=== PATIENT | female | born 1965 | race Caucasian/White ===

== ENCOUNTER → 2016-08-06 | Outpatient (CLI) | payer BC ==
[~2016-08-06] MED LIST: ASPCH81 PO; CRG25 PO; DIGO0.2518 PO; FRS/40 PO; GLC500 PO; LISI-725 PO; NITR-5 PO; OMEG10007 PO; POTA-335 PO; [UNRECOGNIZED DRUG - CODE] PO
--- NOTE | 2016-08-06 14:56 | MAMMOGRAPHY REPORT ---
UNILATERAL RIGHT DIGITAL DIAGNOSTIC MAMMOGRAM: 08/06/2016 CLINICAL HISTORY: 51-year-old woman called back from screening mammography for grouped microcalcific ations and associated nodular asymmetry in the upper inner anterior right breast. TECHNIQUE: Spot magnification right CC and ML views were obtained. COMPARISON: Comparison is made to exams dated: 10/19/2013 mammogram, 04/15/2013 mammogram, 03/07/2012 mammogram, 01/17/2011 mammogram, and 11/09/2009 mammogram - [facility]. BREAST COMPOSITION: There are scattered areas of fibroglandular density in the right breast. FINDINGS: There is a grouping of round and punctate microcalcifications and associated nodular asym metry in the upper inner anterior right breast, measuring approximately 4 x 2 cm. Some of the large st calcifications clearly demonstrate layering on the spot magnification MLO view, suggesting benign milk of calcium. When comparing back to prior spot magnification views obtained 04/15/2013, the mi crocalcifications do not appear significantly changed in number or distribution. However, when comp aring to more remote mammograms, the microcalcifications were new since the 2009 exam and therefore remain indeterminate. Definitive characterization with tissue sampling is recommended. IMPRESSION: ACR BI-RADS CATEGORY 4B: INTERMEDIATE SUSPICION FOR MALIGNANCY Right breast stereotactic guided biopsy is recommended for grouped round and punctate microcalcifica tions measuring approximately 4 x 2 cm in the upper inner anterior right breast. These results and recommendations were discussed with the patient at the time of the exam. She tent atively scheduled the procedure prior to leaving our department. Approximately 10% of breast cancers are not detected with mammography. A negative mammographic repor t should not delay biopsy if a clinically suggestive mass is present. Lydia Hopkins M.D. ay/:08/06/2016 08:57:01 Fire Boss: Suha JIN(R)(M), [facility] letter sent: Abnormal 4/5 BI-RADS Code: ACR BI-RADS Category 4B: Intermediate Suspicion For Malignancy
== END | disposition home or self-care (01) ==
LOC: C.MAMM 08:17
PROVIDERS: ATTEND Family Medicine
DX: R92.0 Mammographic microcalcification found on diagnostic imaging of breast (principal); R92.8 Other abnormal and inconclusive findings on diagnostic imaging of breast

== ENCOUNTER → 2016-08-15 | Outpatient (CLI) | payer BC ==
--- NOTE | 2016-08-15 08:23 | Discharge Instructions ---
Discharge Instructions Procedure Procedure Date: Aug 15, 2016. Reason for visit: Rt Calcs. Discharge Discharge Date: Aug 15, 2016. Discharge Diagnosis: status post breast biopsy Instructions Activity Recommendations: Additional Limitations (see below) Return to School/Work: no limitations Recommended Home Diet: No Limitations Provider Instructions: ACTIVITY RECOMMENDATIONS: * No lifting, pushing, pulling or exercising the affected side for three days. RETURN TO SCHOOL/WORK: * You may return to work/school after the procedure, but do not perform any strenuous activities for 24 to 48 hours. MEDICATIONS: * Tylenol (two 325 mg) every four to six hours if needed for mild pain (if not allergic to Tylenol). DIET: * Resume previous diet. SPECIAL CARE INSTRUCTIONS: * Keep biopsy site dry for 24 hours. May shower after 24 hours, but do not soak (bathe) incision. * May remove Tegaderm (plastic patch) tomorrow AFTER showering. * Leave the steri-strips on for one week. Allow the steri-strips to fall off by themselves. If not off after one week, you may remove them. You may place a Bandaid crosswise over the strips, if desired. * Apply ice 10 minutes on and 10 minutes off as needed. * Wear a bra at bedtime to sleep more comfortably for 2-3 days. * Your referring physician should have the results after approximately 5 to 7 business days. * Call for unusual bleeding, fever, drainage, etc or if you have any questions call during normal business hours or after hours call Dr Jackson, [phone]. FOLLOW UP VISIT: Follow-up with Referring Physician as scheduled. Allergies Coded Allergies: No Known Allergies (Verified Allergy, Unknown, 03/12/03) Callum Friedman Recommendations: Call your doctor if: * Temperature above 101 degrees * Pain not relieved by pain medicine ordered * There is increased drainage or redness from any incision * You have any unanswered questions or concerns. Your Doctors Instructions noted above were prepared by provider Ailyn Jackson. Patient Signature Section: Patient Instructions Signature Page Azul Venkat Patient (or Guardian) Signature/Date: I have read and understand the instructions given to me by my caregivers. Caregiver/RN/Doctor Signature/Date: The above-named patient and/or guardian has received patient instructions on this date. + Original Patient Signature Page (only) stays with chart. Please make copy for patient.
--- NOTE | 2016-08-15 14:23 | MAMMOGRAPHY REPORT ---
UNILATERAL RIGHT DIGITAL DIAGNOSTIC MAMMOGRAM: 08/15/2016 CLINICAL HISTORY: Status post stereotactic biopsy of right upper inner quadrant calcifications. TECHNIQUE: Postprocedural right CC and ML views were obtained. COMPARISON: Comparison is made to exams dated: 07/25/2016 mammogram, 05/23/2015 mammogram, 05/10/20 14 mammogram, 04/15/2013 mammogram, 03/11/2012 mammogram, and 04/08/2013 mammogram - [facility]. BREAST COMPOSITION: There are scattered areas of fibroglandular density in the right breast. FINDINGS: A new biopsy marker clip is seen at the site of the biopsied calcifications in the right upper inner quadrant. Expected postbiopsy changes are seen at the biopsy site, with a possible smal l 1.5 cm hematoma noted. IMPRESSION: POST PROCEDURE IMAGING FOR MARKER PLACEMENT New biopsy marker clip status post stereotactic biopsy of right upper inner quadrant calcifications. Pathology results are pending. Approximately 10% of breast cancers are not detected with mammography. A negative mammographic repor t should not delay biopsy if a clinically suggestive mass is present. Ailyn Jackson M.D. ah/:08/15/2016 08:33:03 Timber [employer] Plant Operator: Gaby JIN(R)(M), [facility] BI-RADS Code: Post Procedure Imaging For Marker Placement
--- NOTE | 2016-08-15 14:23 | MAMMOGRAPHY REPORT ---
STEREOTACTIC GUIDED BIOPSY RIGHT BREAST: 08/15/2016 CLINICAL HISTORY: Indeterminate calcifications in the right upper inner quadrant. PATIENT CONSENT: The procedure, risks, benefits, and alternatives of stereotactic biopsy with clip p lacement were discussed with the patient, and verbal and written consent was obtained. A timeout wa s performed immediately prior to the procedure. PROCEDURE DESCRIPTION: With stereotactic guidance, aseptic technique, and lidocaine as a local anest hetic (1% lidocaine to anesthetize the skin and 1% lidocaine with epinephrine to anesthetize the tennille per tissues), the area of concern was sampled multiple times with a 9-gauge vacuum-assisted biopsy n eedle (Suros Eviva). The path of approach was medial. The specimen radiograph demonstrates calcifi cations to be present in the samples. A metallic marker clip was placed at the biopsy site. This w as confirmed on postprocedure mammograms. Direct pressure was applied at the biopsy site and hemost asis was readily achieved. The patient tolerated the procedure without complication. She was given wound care instructions. COMPARISON: Comparison is made to exams dated: 08/06/2016 mammogram, 07/25/2016 mammogram, 05/23/2015 mammogram, 05/10/2014 mammogram, 10/19/2013 mammogram, and 04/15/2013 mammogram - [facility]. IMPRESSION: STEREOTACTIC GUIDED BIOPSY Stereotactic biopsy of the indeterminate calcifications in the right upper inner quadrant, with clip placement. The patient will receive pathology results from her referring physician. Ailyn Jackson M.D. /:08/15/2016 08:26:43 In Store Marketer: Gaby MATIAS)(Stalin), [facility]
== END | disposition home or self-care (01) ==
LOC: C.MAMM 07:39
PROVIDERS: ATTEND Family Medicine
DX: N60.11 Diffuse cystic mastopathy of right breast (principal); R92.0 Mammographic microcalcification found on diagnostic imaging of breast

== ENCOUNTER → 2017-08-23 | Outpatient (CLI) | payer BC ==
--- NOTE | 2017-08-23 13:23 | MAMMOGRAPHY REPORT ---
BILATERAL DIGITAL SCREENING MAMMOGRAM TOMOSYNTHESIS WITH CAD: 08/23/2017 CLINICAL HISTORY: Routine screening. TECHNIQUE: Breast tomosynthesis in addition to standard 2D mammography was performed. Current study was also evaluated with a Computer Aided Detection (CAD) system. COMPARISON: Comparison is made to exams dated: 07/25/2016 mammogram, 05/23/2015 mammogram, 4 mammogram, 10/19/2013 mammogram, 04/08/2013 mammogram, and 03/07/2012 mammogram - [facility]. BREAST COMPOSITION: There are scattered areas of fibroglandular density in both breasts. FINDINGS: No suspicious masses, calcifications, or areas of architectural distortion are noted in ei ther breast. There has been no significant interval change compared to prior exams. A biopsy marker clip is noted within the right lower inner quadrant from benign stereotactic biopsy of calcifications . IMPRESSION: ACR BI-RADS CATEGORY 2: BENIGN There is no mammographic evidence of malignancy. A 1 year screening mammogram is recommended. The pa tient will receive written notification of the results. Approximately 10% of breast cancers are not detected with mammography. A negative mammographic report should not delay biopsy if a clinically suggestive mass is present. Ailyn Jackson M.D. /:08/23/2017 11:53:57 Retail Assistant: Chris MATIAS)(M), [facility] letter sent: Normal 1/2 BI-RADS Code: ACR BI-RADS Category 2: Benign
== END | disposition home or self-care (01) ==
LOC: C.MAMM 11:33
PROVIDERS: ATTEND Family Medicine
DX: Z12.31 Encounter for screening mammogram for malignant neoplasm of breast (principal)

== ENCOUNTER 2017-10-28 19:19 | Inpatient (IN) | payer BC ==
[~2017-10-28] VITALS: Ht 162.6 cm; Wt 93.1 kg
[2017-10-28] MEDS ORDERED: FAMOTIDINE 20MG/5ML IV PUSH IV STA (20:54)
[2017-10-28] MEDS ORDERED: ONDANSETRON INJ 2 MG/ML 2 ML VIAL IV STA (20:54)
[2017-10-28] MEDS ORDERED: KETOROLAC TROMETHAMINE 30 MG/ML VIAL IV STA (20:54)
[2017-10-28] MEDS ORDERED: SODIUM CHLORIDE 0.9% 1000ML 1,000 ML IV STA (20:54)
[2017-10-28 21:05] LABS: BASO % 0.5 %; BASO ABS # 0.05 K/uL (0-0.2); EOS % 1.3 %; EOS ABS # 0.12 K/uL (0-0.5); HEMOGLOBIN 14.5 g/dL (12.0-16.0); IG# 0.03 K/uL (0.00-0.02); LYMPH % 3.5 %; LYMPH ABS # 0.32 K/uL (1.2-3.4); MEAN CORPUSCULAR HEMOGLOBIN 28.7 pg (25-34); MEAN PLATELET VOLUME 8.4 fL (7.4-10.4); MONO % 13.8 %; MONO ABS # 1.26 K/uL (0.11-0.59); NEUT % 80.6 %; NEUT ABS # 7.38 K/uL (1.4-6.5); PLATELET COUNT 418 K/uL (130-400); WHITE BLOOD COUNT 9.16 K/uL (4.8-10.8)
[2017-10-28 21:29] LABS: ALT/SGPT 23 U/L (12-78); BLOOD UREA NITROGEN 11 mg/dl (7-18); CALCIUM 8.7 mg/dl (8.5-10.1); CARBON DIOXIDE 25 mmol/L (21-32); CREATININE 1.21 mg/dl (0.60-1.20); GLUCOSE 129 mg/dl (70-99); LIPASE 118 U/L (73-393); POTASSIUM 3.2 mmol/L (3.5-5.1); SODIUM 134 mmol/L (136-145)
[2017-10-28 21:34] LABS: ALKALINE PHOSPHATASE 90 U/L (45-117); AST/SGOT 14 U/L (15-37); TOTAL PROTEIN 7.4 gm/dl (6.4-8.2)
--- NOTE | 2017-10-28 21:58 | DIAGNOSTIC IMAGING REPORT ---
CHEST ONE VIEW PORTABLE CLINICAL HISTORY: ABDOMINAL PAIN/GI COMPARISON STUDY: Abdominal series and chest radiograph December 20, 2008. FINDINGS: Lung volumes are mildly diminished. No pneumothorax or pleural effusion is noted. There is no consolidation or evidence of pulmonary edema. Cardiac size is unremarkable. Mediastinal contours are within normal limits. IMPRESSION: No acute cardiopulmonary findings. Electronically signed by: Santi Martin M.D. 10/28/2017 9:57 PM Dictated Date/Time: 10/28/2017 9:56 PM
--- NOTE | 2017-10-28 22:25 | DIAGNOSTIC IMAGING REPORT ---
CT OF THE ABDOMEN AND PELVIS WITH CONTRAST CLINICAL HISTORY: Abdominal pain. COMPARISON STUDY: Abdominal series December 20, 2008. TECHNIQUE: Following IV administration of 94 mL of Optiray-320, axial images of the abdomen and pelvis were obtained from the lung bases to the proximal femurs. Images were reviewed in the axial, sagittal, and coronal planes. IV contrast was administered without complication. A dose lowering technique was utilized adhering to the principles of ALARA. CT DOSE: 1055.86 mGy.cm FINDINGS: A trace right pleural effusion is noted. There is no pneumatosis, free air or portal venous gas. Note is made of a 2 cm hypodense segment 7 hepatic lesion is well as a subtle 2.3 cm several hypodense segment 7 hepatic lesion shown image 18 of 97. The spleen, adrenal glands and pancreas are unremarkable. A few suspected renal cysts are noted. Several subcentimeter renal lesions are too small to characterize. There is a 2 mm right renal calculus. No ureteral calculi are present. There is no hydronephrosis. The appendix is normal. Small large bowel are fluid-filled. There is multifocal long segment ileal wall thickening with associated hyperemia and mesenteric infiltration. There is trace abdominal and pelvic ascites. A transition point is noted within the small bowel shown on axial image 330 of 481. No free air or abscess is present. No abscess or fistula is identified. There is suspected sacroiliitis. Note is made of a 3.5 cm water attenuation right adnexal lesion. IMPRESSION: 1. Multifocal long segment wall thickening and associated hyperemia of the ileum with mild small bowel dilatation suggestive of a partial small bowel obstruction secondary to ileitis which may be inflammatory or infectious. The appearance raises the possibility of Crohn's disease however an infectious process could appear similar. No free air or abscess. Mild mesenteric infiltration and trace ascites. Normal appendix. 2. A few hypodense right hepatic lobe lesions which are indeterminate. A follow-up nonemergent MRI of the liver once acute symptoms resolve is recommended. 3. Trace right pleural effusion. 4. 3.5 cm right adnexal lesion which likely reflects an ovarian cyst. A follow-up nonemergent pelvic ultrasound is recommended. 5. Suspected sacroiliitis. Electronically signed by: Santi Martin M.D. 10/28/2017 10:24 PM Dictated Date/Time: 10/28/2017 10:11 PM
[2017-10-28] MEDS ORDERED: MAGN400T6 PO (23:32)
[2017-10-28] MEDS ORDERED: LISI-729 PO (23:33)
[2017-10-29] MEDS ORDERED: POTASSIUM CHLORIDE 10 MEQ TABCR PO STA (00:14)
[2017-10-29] MEDS ORDERED: INSULIN ASPART 100 UNITS/ML 3 ML PEN SC ONE (00:14)
[2017-10-29] MEDS ORDERED: GLUCOSE 40% GEL 15 GM TUBE PO PRN (00:15)
[2017-10-29] MEDS ORDERED: GLUCOSE 10 TABS/TUBE PO PRN (00:15)
[2017-10-29] MEDS ORDERED: TRAMADOL HCL 50 MG TAB PO PRN (00:15)
[2017-10-29] MEDS ORDERED: GLUCAGON FOR INJ 1 MG VIAL SQ PRN (00:15)
[2017-10-29] MEDS ORDERED: DEXTROSE 50% 50 ML SYR IV PRN (00:15)
[2017-10-29] MEDS ORDERED: LORAZEPAM 2 MG/ML 1 ML VIAL IV PRN (00:15)
[2017-10-29] MEDS ORDERED: HYDROmorphone INJ 0.5 MG/0.5 ML SYR IV PRN (00:15)
[2017-10-29] MEDS ORDERED: ACETAMINOPHEN 325 MG TAB PO PRN (00:15)
[2017-10-29] MEDS ORDERED: CARVEDILOL 25 MG TAB PO STA (00:54)
[2017-10-29] MEDS ORDERED: CARVEDILOL 3.125 MG TAB PO STA (01:00)
[2017-10-29] MEDS ORDERED: MAGNESIUM SULFATE 1GM / D5W 1 GM in PREMIXED IN D5W 100 ML IV STA (01:18)
[2017-10-29 01:25] VITALS: BP 101/64; PULSE 67; TEMP 36.4; O2SAT 96; BMI 35.2
[2017-10-29] MEDS: NSS + 20MEQ KCL 1000ML 1,000 ML IV SCH ×2 (01:37→14:23)
[2017-10-29 02:01] VITALS: BP 99/59; PULSE 69
[2017-10-29 05:38] LABS: BASO % 0.6 %; BASO ABS # 0.03 K/uL (0-0.2); EOS ABS # 0.15 K/uL (0-0.5); HEMATOCRIT 36.5 % (37-47); HEMOGLOBIN 12.1 g/dL (12.0-16.0); IG# 0.03 K/uL (0.00-0.02); LYMPH % 7.7 %; LYMPH ABS # 0.38 K/uL (1.2-3.4); MEAN CELL VOLUME 86.5 fL (80-100); MEAN CORPUSCULAR HEMOGLOBIN 28.7 pg (25-34); MEAN CORPUSCULAR HGB CONC 33.2 g/dl (32-36); MEAN PLATELET VOLUME 8.1 fL (7.4-10.4); MONO % 17.3 %; MONO ABS # 0.85 K/uL (0.11-0.59); NEUT % 70.8 %; NEUT ABS # 3.48 K/uL (1.4-6.5); PLATELET COUNT 302 K/uL (130-400); RED CELL DISTRIBUTION WIDTH CV 14.2 % (11.5-14.5); RED CELL DISTRIBUTION WIDTH SD 44.5 fL (36.4-46.3); WHITE BLOOD COUNT 4.92 K/uL (4.8-10.8)
[2017-10-29] MEDS ORDERED: NURSING VERBAL MED ORDER ONE (05:45)
--- NOTE | 2017-10-29 05:55 | HISTORY & PHYSICAL EXAMINATION ---
DATE OF ADMISSION: 10/28/2017 PRIMARY CARE PHYSICIAN: Dr. Ochoa. CHIEF COMPLAINT: Abdominal pain. HISTORY OF PRESENT ILLNESS: History obtained from patient and records. Medical history significant for hypertension, chronic diastolic heart failure 2 to hypertensive cardiomyopathy (EF 55-59% 2013), , hyperlipidemia. DM2, diet controlled Two days history of achy epigastric pain, nausea, bilious emesis, loose stools (usual for patient), nonbloody. No fever, no chills, no chest pain, no shortness of breath. Intentional weight loss as per patient. Brought to the Emergency Room. MEDICAL HISTORY: As above. No previous colonoscopies. SURGERIES: She has had cholecystectomy. HOME MEDICATIONS: Include aspirin, Coreg, lisinopril, mag oxide, potassium chloride ALLERGIES: No known drug allergies. FAMILY HISTORY: Diabetes. Father has "bowel issues" - necessitating daily Cipro. PERSONAL SOCIAL HISTORY: Nonsmoker, no chronic intake of alcoholic beverages. Runs a daycare business. REVIEW OF SYSTEMS: As per HPI. All 10 systems reviewed, all other ROS negative. PHYSICAL EXAMINATION: VITAL SIGNS: Blood pressure was noted to be 100/70, pulse rate 95, RR 20 T 37 O2 sats 96 on room air. GENERAL: Noted to be anxious, obese, no respiratory distress. SKIN: Normal color, warm. HEENT: [place] palpebral conjunctivae. No ptosis. Dry mucosa. NECK: Short, supple. Nontender CHEST: Decreased breath sounds. No tenderness. HEART: Regular rate and rhythm, no murmur. ABDOMEN: Epigastric tenderness, some distention. EXTREMITIES: No edema. No gross deformities. No tenderness. NEUROLOGIC: Coherent. No gross focality. LABORATORY DATA: Hemoglobin was noted to be 14.5, hematocrit 44, white blood cell count 11.16, platelets 418. Sodium 134, potassium 3.4, chloride 104, CO2 25, BUN 11, creatinine 1.31, glucose 129 Hemoglobin A1c from July [address] abdomen and pelvis showed multifocal long segment wall thickening and hyperemia of the ileum with mild small bowel dilatation suggestive of partial small-bowel obstruction secondary to ileitis, inflammatory or infectious possible Crohn's disease. trace ascites. Normal appendix. Hypodense right hepatic cyst, recommen nonemergent MRI. UA, WBC calcium oxalate, ketones, epithelial cells. ASSESSMENT: 1. Ileitis possible inflammatory bowel disease Patient is not toxic. 2. Hyponatremia. Hypokalemia. Acute renal failure. clinical dehydration secondary to GI illness . 3. Hyperlipidemia on statin rx. 4. Hypertension. Patient's blood pressure on the lower side. 5. DM2, diet controlled, well controlled as of recent outpatient hemoglobin A1c. 6. History of hypertensive cardiomyopathy, ejection fraction 65%. Patient on the dry side. 7. Asymptomatic pyuria PLAN: GMF Stool C. difficile analgesia, bowel rest for now. IV fluids, replace potassium. GI consult, possible IBD. Monitor creatinine response to IV fluids. Hold home ACEI until creatinine at baseline. Decrease maintenance beta raegan dose for now given borderline blood pressure. ISS BG goal 140-180. DVT prophylaxis, Heparin subQ. Full code. Case d/w Dr. Liu (GI specialist swimming pool serviceperson). He recommends adding stool culture to stool C. diff for now. Further management pending GI evaluation. MTDD
[2017-10-29] MEDS ORDERED: HEPARIN SOD 5000 UNIT/0.5 ML CARP SQ SCH (06:00)
[2017-10-29] MEDS: INSULIN ASPART 100 UNITS/ML 3 ML PEN SC SCH ×4 (06:00→21:00)
[2017-10-29 06:14] LABS: CALCIUM 8.2 mg/dl (8.5-10.1); CREATININE 0.96 mg/dl (0.60-1.20); POTASSIUM 3.6 mmol/L (3.5-5.1)
[2017-10-29] MEDS ORDERED: INSULIN ASPART 100 UNITS/ML 3 ML PEN SC SCH (06:30)
[2017-10-29 07:53] VITALS: BP 117/72; PULSE 71; TEMP 36.7; O2SAT 97
[2017-10-29] MEDS ORDERED: ASPIRIN 81 MG CHEW PO SCH (08:00)
[2017-10-29] MEDS ORDERED: ENOXAPARIN 40 MG/0.4 ML SYR SQ ONE (08:30)
--- NOTE | 2017-10-29 08:45 | Gastrointestinal Consultation ---
Gastrointestinal Consultation Date of Consultation: Oct 29, 2017 Attending Physician: Dr. Mendieta Consulting Physician: Dr. Liu Reason for Consultation: Ileitis on CT History of Present Illness Patient is a 52 year old female patient of Dr. Ochoa with a hx of hypertensive cardiomyopathy (was greater than 300 lbs), DM-2 who presented to the ED yesterday for epigastric pain and vomiting. Her pain began on Saturday, consisting of diffuse upper abdomen burning, bloating pain with nausea. At that time, she vomited and had improvement in her pain. However, every day since then, she tried to eat a small meal around noon, then had increasing pain and vomited liquid/mucous stomach contents around 4 or 5 each day. She has not had hematemesis or a change in bowel habits. She continues with 1-2 loose brown BMs/day which is her baseline. Her most recent BM was this morning. She denies any recent travel or eating any potentially contaminated foods. No sick contacts. She has not yet undergone a screening colonoscopy and has never had any other endoscopy. She does not recall any previous episodes of similar pain and does not have a family hx of autoimmune disease. On arrival, CT abd/pelvis with IV, no oral contrast was suggestive of a long segment of wall thickening in the ileum and mild small bowel dilation. There was also mention of possible sacroiliitis, small non specific liver lesions and a 3.5 cm right ovarian cyst. On labs, there was no leukocytosis; there was hypokalemia (3.2) and hyponatremia (132), and Cr was mildly elevated on arrival at 1.2 (today back to baseline of 0.9). This morning she is free of pain but has been NPO except ice chips. Past Medical/Surgical History Past Medical History: 1. Hyperlipidemia 2. HTN 3. Cardiomyopathy 4. DM-2, diet controlled. Past Surgical History: 1. 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) Allergies Coded Allergies: No Known Allergies (Verified , 10/28/17) Current Medications Home Meds and Scripts Medications Dose Route/Sig Max Daily Dose Days Date Category Zestril (Lisinopril) 5 Mg Tab 5 Mg PO DAILY 10/28/17 Reported Mag-Ox (Magnesium Oxide) Unknown Strength Tab Unknown Dose PO DAILY 10/28/17 Reported Micro-K Ext Rel (Potassium Chloride) 20 Meq Cap 20 Meq PO QAM 12/20/08 Reported Coreg * (Carvedilol) 25 Mg Tab 37.5 Mg PO BID 12/20/08 Reported Aspirin Tab-Chewable * (Aspirin) 81 Mg Chew 81 Mg PO DAILY 12/20/08 Reported Review of Systems Constitutional: No fever, No chills, No sweats, No weight loss, No weakness Eyes: No eye pain, No redness ENT: No sore throat, No trouble swallowing, No pain on swallowing Respiratory: No cough, No wheezing, No shortness of breath, No dyspnea on exertion Cardiac: No chest pain, No edema, No palpitations Abdomen: + see HPI, + pain, + nausea, + vomiting, No diarrhea, No constipation , No GI bleeding, No dysphagia, No odynophagia Female : No dysuria Neuro: No memory loss, No weakness, No numbness/tingling, No vertigo, No balance problems Psych: No depression symptoms, No anxiety, No insomnia Heme: No abnormal bleeding/bruising, No night sweats Endo: No excessive thirst, No excessive urination Skin: No rash, No itch, No new/changing skin lesions, No jaundice Physical Exam Date Time Temp Pulse Resp B/P (MAP) Pulse Ox O2 Delivery O2 Flow Rate FiO2 10/29/17 07:53 36.7 71 16 117/72 (87) 97 Room Air 10/29/17 02:01 69 99/59 (72) 10/29/17 01:25 36.4 67 18 101/64 96 Room Air 10/29/17 00:44 36.6 76 20 105/73 97 10/28/17 22:50 76 20 105/73 97 Room Air 10/28/17 21:10 67 20 120/66 95 10/28/17 19:32 36.6 105 18 115/80 97 Room Air General Appearance: no apparent distress Eyes: normal inspection, EOMI Neck: supple, no adenopathy, thyroid normal Respiratory/Chest: chest non-tender, lungs clear, normal breath sounds, no accessory muscle use Cardiovascular: regular rate, rhythm, no JVD, no murmur Abdomen: normal bowel sounds, non tender, soft, no organomegaly Extremities: normal inspection, no pedal edema, normal capillary refill Neurologic/Psych: alert, normal mood/affect, oriented x 3 Skin: normal color, no jaundice, warm/dry, no rash Laboratory Results Last 24 Hours Test 10/28/17 20:54 10/28/17 20:56 10/29/17 01:39 10/29/17 05:30 Urine Color DK YELLOW Urine Appearance CLOUDY Urine pH 6.0 Urine Specific [place] 1.031 Urine Protein 1+ Urine Glucose (UA) NEG Urine Ketones TRACE Urine Occult Blood NEG Urine Nitrite NEG Urine Bilirubin NEG Urine Urobilinogen NEG Urine Leukocyte Esterase SMALL Urine WBC (Auto) >30 /hpf Urine RBC (Auto) 0-4 /hpf Urine Hyaline Casts (Auto) >30 /lpf Urine Epithelial Cells (Auto) >30 /lpf Urine Bacteria (Auto) 1+ Urine Crystals CALCIUM OXALATE Urine Pathogenic Casts 1-5 WBC CASTS /lpf White Blood Count 9.16 K/uL 4.92 K/uL Red Blood Count 5.06 M/uL 4.22 M/uL Hemoglobin 14.5 g/dL 12.1 g/dL Hematocrit 44.0 % 36.5 % Mean Corpuscular Volume 87.0 fL 86.5 fL Mean Corpuscular Hemoglobin 28.7 pg 28.7 pg Mean Corpuscular Hemoglobin Concent 33.0 g/dl 33.2 g/dl Platelet Count 418 K/uL 302 K/uL Mean Platelet Volume 8.4 fL 8.1 fL Neutrophils (%) (Auto) 80.6 % 70.8 % Lymphocytes (%) (Auto) 3.5 % 7.7 % Monocytes (%) (Auto) 13.8 % 17.3 % Eosinophils (%) (Auto) 1.3 % 3.0 % Basophils (%) (Auto) 0.5 % 0.6 % Neutrophils # (Auto) 7.38 K/uL 3.48 K/uL Lymphocytes # (Auto) 0.32 K/uL 0.38 K/uL Monocytes # (Auto) 1.26 K/uL 0.85 K/uL Eosinophils # (Auto) 0.12 K/uL 0.15 K/uL Basophils # (Auto) 0.05 K/uL 0.03 K/uL RDW Standard Deviation 44.0 fL 44.5 fL RDW Coefficient of Variation 14.0 % 14.2 % Immature Granulocyte % (Auto) 0.3 % 0.6 % Immature Granulocyte # (Auto) 0.03 K/uL 0.03 K/uL Sodium Level 134 mmol/L 138 mmol/L Potassium Level 3.2 mmol/L 3.6 mmol/L Chloride Level 101 mmol/L 108 mmol/L Carbon Dioxide Level 25 mmol/L 20 mmol/L Anion Gap 8.0 mmol/L 10.0 mmol/L Blood Urea Nitrogen 11 mg/dl 11 mg/dl Creatinine 1.21 mg/dl 0.96 mg/dl Est Creatinine Clear Calc Drug Dose 60.1 ml/min 76.7 ml/min Estimated GFR () 60.0 79.4 Estimated GFR (Non- 51.8 68.5 BUN/Creatinine Ratio 9.3 11.7 Random Glucose 129 mg/dl 99 mg/dl Calcium Level 8.7 mg/dl 8.2 mg/dl Magnesium Level 1.8 mg/dl Total Bilirubin 0.7 mg/dl Aspartate Amino Transf (AST/SGOT) 14 U/L Alanine Aminotransferase (ALT/SGPT) 23 U/L Alkaline Phosphatase 90 U/L Troponin I < 0.015 ng/ml Total Protein 7.4 gm/dl Albumin 3.0 gm/dl Globulin 4.4 gm/dl Albumin/Globulin Ratio 0.7 Lipase 118 U/L Bedside Glucose 97 mg/dl Prothrombin Time 10.0 SECONDS Prothromb Time International Ratio 1.0 Lactic Acid Level 0.7 mmol/L Test 10/29/17 06:08 Bedside Glucose 93 mg/dl Impression Patient is a 52 year old female with abdominal pain and CT suggestive of ileitis. Though this could represent an infectious etiology, that is unlikely because she has not had fevers/chills or diarrhea. The diagnosis of exclusion is Crohn's Disease. Plan 1. Clear liquids po today. 2. Sed rate, CRP. 3. Stool culture. 4. Plan for colonoscopy tomorrow. I have seen , examined and agree with the plan as outlined by SILVIA Rodgers as above. -exam reveals soft abd -Long segment of inflammation of the terminal illeum + sacroiliitis are concerning for Crohn's, however, a bit unusual to have such an acute onset of symptoms just since Saturday. Unlikely, but infectious etiology is still in differential. -Not obstructed clinically, therefore, will proceed with colonoscopy.
[2017-10-29] MEDS: CARVEDILOL 3.125 MG TAB PO SCH ×2 (08:51→21:15)
[2017-10-29] MEDS ORDERED: NURSING DECISION MEDICATION ORDER SCH (13:00)
[2017-10-29 13:27] VITALS: Ht 162.6 cm; Wt 93.1 kg
[2017-10-29] MEDS ORDERED: BISACODYL 5 MG TABEC PO ONE (14:00)
[2017-10-29] MEDS: POLYETHYLENE (MIRALAX) 17 GM PACK PO SCH (14:22)
--- NOTE | 2017-10-29 15:21 | EMERGENCY ROOM VISIT NOTE ---
History Report prepared by Martell: Carlo Tavares Under the Supervision of: Dr. Jean Smith M.D. First contact with patient: 20:47 Chief Complaint: ABDOMINAL PAIN Stated Complaint: STOMACH PAIN Nursing Triage Summary: burning epigastric pain History of Present Illness The patient is a 52 year old female who presents to the Emergency Room with complaints of intermittent abdominal pain beginning a few days ago. The patient states that she develops pain a few hours after eating. She notes that her pain feels like she is bloated and sore. She reports that her pain worsens when she feels bloated. The patient states that vomiting makes her pain better. She notes that she has not experienced similar symptoms in the past. She also complains diarrhea. She reports that after she vomits she has a burning sensation in her throat. She denies any fever, urinary symptoms, SOB, cough, and known sick contacts. She notes that she has a previous history of a cholecystectomy, hypertension, and CHF, but does not have a history of reflux. She rates her pain as an 8/10 when it is at its worst. Source of History: patient Onset: a few days ago Position: abdomen Symptom Intensity: 8/10 Timing: intermittent Modifying Factors (Worsening): other (bloating) Modifying Factors (Relieving): other (vomiting) Associated Symptoms: + vomiting, + diarrhea (does not contain blood), No fevers, No cough, No SOB, No urinary symptoms Note: The patient states that she feels bloated and burning in her throat. Review of Systems See HPI for pertinent positives & negatives. A total of 10 systems reviewed and were otherwise negative. Past Medical & Surgical Medical Problems: (1) CHF (congestive heart failure) (2) Hypertension (3) Ileitis Surgical Problems: (1) History of cholecystectomy Family History No pertinent family history stated. Social History Smoking Status: Never Smoker Marital Status: Housing Status: lives with family Current/Historical Medications Scheduled Aspirin (Aspirin Tab-Chewable *), 81 MG PO DAILY Carvedilol (Coreg *), 37.5 MG PO BID Lisinopril (Zestril), 5 MG PO DAILY Magnesium Oxide (Mag-Ox), Unknown Dose PO DAILY Potassium Chloride (Micro-K Ext Rel), 20 MEQ PO QAM Allergies Coded Allergies: No Known Allergies (Verified , 10/28/17) Physical Exam Vital Signs Date Time Temp Pulse Resp B/P (MAP) Pulse Ox O2 Delivery O2 Flow Rate FiO2 10/28/17 22:50 76 20 105/73 97 Room Air 10/28/17 21:10 67 20 120/66 95 10/28/17 19:32 36.6 105 18 115/80 97 Room Air Physical Exam GENERAL: Patient is in no acute distress. HEENT: No acute trauma, normocephalic atraumatic, mucous membranes moist, no nasal congestion, no scleral icterus. NECK: No stridor, no adenopathy, no meningismus, trachea is midline. LUNGS: Clear to auscultation bilaterally, no wheeze, no rhonchi, breath sounds equal. HEART: Without murmurs gallops or rubs, regular rate and rhythm. ABDOMEN: Abdominal distention present, hyperactive bowel sounds noted, tender in epigastrium, no peritonitis, abdomen soft. EXTREMITIES: No cyanosis or edema, full range of motion of all the joints without pain or difficulty, no signs for acute trauma. NEUROLOGIC: Oriented x 3, no acute motor or sensory deficits, no focal weakness. SKIN: No rash, no jaundice, no diaphoresis. Medical Decision & Procedures ER Provider Diagnostic Interpretation: Radiology results as stated below per my review and radiologist interpretation: CHEST ONE VIEW PORTABLE FINDINGS: Lung volumes are mildly diminished. No pneumothorax or pleural effusion is noted. There is no consolidation or evidence of pulmonary edema. Cardiac size is unremarkable. Mediastinal contours are within normal limits. IMPRESSION: No acute cardiopulmonary findings. Electronically signed by: Santi Martin M.D. 10/28/2017 9:[address] OF THE ABDOMEN AND PELVIS WITH CONTRAST FINDINGS: A trace right pleural effusion is noted. There is no pneumatosis, free air or portal venous gas. Note is made of a 2 cm hypodense segment 7 hepatic lesion is well as a subtle 2.3 cm several hypodense segment 7 hepatic lesion shown image 18 of 97. The spleen, adrenal glands and pancreas are unremarkable. A few suspected renal cysts are noted. Several subcentimeter renal lesions are too small to characterize. There is a 2 mm right renal calculus. No ureteral calculi are present. There is no hydronephrosis. The appendix is normal. Small large bowel are fluid-filled. There is multifocal long segment ileal wall thickening with associated hyperemia and mesenteric infiltration. There is trace abdominal and pelvic ascites. A transition point is noted within the small bowel shown on axial image 330 of 481. No free air or abscess is present. No abscess or fistula is identified. There is suspected sacroiliitis. Note is made of a 3.5 cm water attenuation right adnexal lesion. IMPRESSION: 1. Multifocal long segment wall thickening and associated hyperemia of the ileum with mild small bowel dilatation suggestive of a partial small bowel obstruction secondary to ileitis which may be inflammatory or infectious. The appearance raises the possibility of Crohn's disease however an infectious process could appear similar. No free air or abscess. Mild mesenteric infiltration and trace ascites. Normal appendix. 2. A few hypodense right hepatic lobe lesions which are indeterminate. A follow-up nonemergent MRI of the liver once acute symptoms resolve is recommended. 3. Trace right pleural effusion. 4. 3.5 cm right adnexal lesion which likely reflects an ovarian cyst. A follow-up nonemergent pelvic ultrasound is recommended. 5. Suspected sacroiliitis. Electronically signed by: Santi Martin M.D. 10/28/2017 10:24 PM Laboratory Results Test 10/28/17 20:54 10/28/17 20:56 Urine Color DK YELLOW Urine Appearance CLOUDY (CLEAR) Urine pH 6.0 (4.5-7.5) Urine Specific [place] 1.031 (1.000-1.030) Urine Protein 1+ (NEG) Urine Glucose (UA) NEG (NEG) Urine Ketones TRACE (NEG) Urine Occult Blood NEG (NEG) Urine Nitrite NEG (NEG) Urine Bilirubin NEG (NEG) Urine Urobilinogen NEG (NEG) Urine Leukocyte Esterase SMALL (NEG) Urine WBC (Auto) >30 /hpf (0-5) Urine RBC (Auto) 0-4 /hpf (0-4) Urine Hyaline Casts (Auto) >30 /lpf (0-5) Urine Epithelial Cells (Auto) >30 /lpf (0-5) Urine Bacteria (Auto) 1+ (NEG) Urine Crystals CALCIUM OXALATE (NONE Urine Pathogenic Casts 1-5 WBC CASTS /lpf (0) Magnesium Level 1.8 mg/dl (1.8-2.4) Total Bilirubin 0.7 mg/dl (0.2-1) Aspartate Amino Transf (AST/SGOT) 14 U/L (15-37) Alanine Aminotransferase (ALT/SGPT) 23 U/L (12-78) Alkaline Phosphatase 90 U/L (45-117) Troponin I < 0.015 ng/ml (0-0.045) Total Protein 7.4 gm/dl (6.4-8.2) Albumin 3.0 gm/dl (3.4-5.0) Globulin 4.4 gm/dl (2.5-4.0) Albumin/Globulin Ratio 0.7 (0.9-2) Lipase 118 U/L (73-393) Laboratory results reviewed by me. Medications Administered Medications (Trade) Dose Ordered Sig/Ina Route Start Time Stop Time Status Last Admin Dose Admin Ondansetron HCl (Zofran Inj) 4 mg NOW STAT IV 10/28/17 20:54 10/28/17 20:56 DC 10/28/17 21:05 4 MG Sodium Chloride 1,000 ml @ 999 mls/hr Q1H1M STAT IV 10/28/17 20:54 10/28/17 21:54 DC 10/28/17 20:54 999 MLS/HR Ketorolac Tromethamine (Toradol Inj) 30 mg NOW STAT IV 10/28/17 20:54 10/28/17 20:56 DC 10/28/17 21:06 30 MG Famotidine (Pepcid 20mg Iv Push) 20 mg ONE STAT IV 10/28/17 20:54 10/28/17 20:56 DC 10/28/17 21:05 20 MG ECG Per My Interpretation Indication: abdominal pain Rate (beats per minute): 85 Rhythm: sinus rhythm Findings: other (PVCs present, no ST elevation) ED Course 2048: The patient was evaluated in room B5. A complete history and physical exam was performed. 2053: Famotidine 20mg IV, Toradol Inj 30mg IV, Zofran Inj 4mg IV, Sodium Chloride 1000 ml @ 999 mls/hr IV 2321: I reevaluated and updated the patient. 2229: Upon reexamination the patient is stable. I discussed results and treatment plan with the patient. She verbalizes agreement and understanding. [facility] We discussed the patient's results and findings. The patient will be evaluated by Dr. Churchill for further management. Medical Decision Differential diagnoses include: pancreatitis, diverticulitis, biliary colic, pneumonia, cardiac ischemia, reflux, ulcer, bowel obstruction, gastritis, hernia , and UTI. There is no leukocytosis or concerning anemia. No significant electrolyte abnormality, kidney failure, hepatitis or pancreatitis. Urinalysis shows contamination, no obvious infection. EKG shows a sinus rhythm with PVCs, no acute ischemia. Cardiac enzyme testing 1 is not suggestive of acute cardiac injury. Chest film does not show pneumonia or free air. Abdominal and pelvis CT shows a partial small bowel obstruction, no free air. The patient received IV Toradol, IV saline and IV Zofran. She was given IV Pepcid. The patient is feeling improved. Her findings do suggest a partial small bowel obstruction. I did talk with her and case management. I do think hospitalization is warranted. The on-call hospitalist was consulted and we discussed the case. Medication Reconcilliation Current Medication List: was personally reviewed by me Blood Pressure Screening Patient's blood pressure: Normal blood pressure Blood pressure disposition: Did not require urgent referral Consults Time Called: 2227 [facility] Returned Call: [phone] Discussed the patient's case. The patient will be evaluated for further management. Impression Primary Impression: Partial small bowel obstruction Additional Impressions: Vomiting Epigastric abdominal pain Scribe Attestation The scribe's documentation has been prepared under my direction and personally reviewed by me in its entirety. I confirm that the note above accurately reflects all work, treatment, procedures, and medical decision making performed by me. Departure Information Dispostion Being Evaluated By Hospitalist Referrals Elizabeth Ochoa D.O. (PCP) Patient Instructions My [facility] Problem Qualifiers
[2017-10-29 15:30] VITALS: BP 104/69; PULSE 61; TEMP 36.3; O2SAT 99
--- NOTE | 2017-10-29 15:54 | Progress Note ---
Medicine Progress Note Date & Time of Visit: Oct 29, 2017 at 15:49. Subjective patient seen resting in bed comfortable in good spirits states she feels improved abdominal pain improving no nausea bowel prep in progress, no hematochezia/melena denies other symptoms Objective Last 8 Hrs Date Time Temp Pulse Resp B/P (MAP) Pulse Ox O2 Delivery O2 Flow Rate FiO2 10/29/17 15:30 36.3 61 18 104/69 (81) 99 Room Air 10/29/17 08:45 Room Air 10/29/17 07:53 36.7 71 16 117/72 (87) 97 Room Air Physical Exam: General- oriented x 3, not in distress, speaks in sentences with no effort Head- atraumatic Eyes- PERRL, EOMI, anicteric ENT- oropharynx clear Neck- supple, no JVD, no adenopathy, no thyromegaly; carotids +2/2 Lungs- clear breath sounds bilaterally no rales/wheezes Heart- regular rhythm; no murmur, normal rate Abdomen- normal bowel sounds, soft, nontender Extremities- no pretibial edema, no calf tenderness; peripheral pulses intact Neuro- alert, oriented x 3;no gross focal deficits Skin- warm & dry Laboratory Results: Last 24 Hours Test 10/28/17 20:54 10/28/17 20:56 10/29/17 01:39 10/29/17 05:30 Urine Color DK YELLOW Urine Appearance CLOUDY Urine pH 6.0 Urine Specific Range 1.031 Urine Protein 1+ Urine Glucose (UA) NEG Urine Ketones TRACE Urine Occult Blood NEG Urine Nitrite NEG Urine Bilirubin NEG Urine Urobilinogen NEG Urine Leukocyte Esterase SMALL Urine WBC (Auto) >30 /hpf Urine RBC (Auto) 0-4 /hpf Urine Hyaline Casts (Auto) >30 /lpf Urine Epithelial Cells (Auto) >30 /lpf Urine Bacteria (Auto) 1+ Urine Crystals CALCIUM OXALATE Urine Pathogenic Casts 1-5 WBC CASTS /lpf White Blood Count 9.16 K/uL 4.92 K/uL Red Blood Count 5.06 M/uL 4.22 M/uL Hemoglobin 14.5 g/dL 12.1 g/dL Hematocrit 44.0 % 36.5 % Mean Corpuscular Volume 87.0 fL 86.5 fL Mean Corpuscular Hemoglobin 28.7 pg 28.7 pg Mean Corpuscular Hemoglobin Concent 33.0 g/dl 33.2 g/dl Platelet Count 418 K/uL 302 K/uL Mean Platelet Volume 8.4 fL 8.1 fL Neutrophils (%) (Auto) 80.6 % 70.8 % Lymphocytes (%) (Auto) 3.5 % 7.7 % Monocytes (%) (Auto) 13.8 % 17.3 % Eosinophils (%) (Auto) 1.3 % 3.0 % Basophils (%) (Auto) 0.5 % 0.6 % Neutrophils # (Auto) 7.38 K/uL 3.48 K/uL Lymphocytes # (Auto) 0.32 K/uL 0.38 K/uL Monocytes # (Auto) 1.26 K/uL 0.85 K/uL Eosinophils # (Auto) 0.12 K/uL 0.15 K/uL Basophils # (Auto) 0.05 K/uL 0.03 K/uL RDW Standard Deviation 44.0 fL 44.5 fL RDW Coefficient of Variation 14.0 % 14.2 % Immature Granulocyte % (Auto) 0.3 % 0.6 % Immature Granulocyte # (Auto) 0.03 K/uL 0.03 K/uL Sodium Level 134 mmol/L 138 mmol/L Potassium Level 3.2 mmol/L 3.6 mmol/L Chloride Level 101 mmol/L 108 mmol/L Carbon Dioxide Level 25 mmol/L 20 mmol/L Anion Gap 8.0 mmol/L 10.0 mmol/L Blood Urea Nitrogen 11 mg/dl 11 mg/dl Creatinine 1.21 mg/dl 0.96 mg/dl Est Creatinine Clear Calc Drug Dose 60.1 ml/min 76.7 ml/min Estimated GFR () 60.0 79.4 Estimated GFR (Non- 51.8 68.5 BUN/Creatinine Ratio 9.3 11.7 Random Glucose 129 mg/dl 99 mg/dl Calcium Level 8.7 mg/dl 8.2 mg/dl Magnesium Level 1.8 mg/dl Total Bilirubin 0.7 mg/dl Aspartate Amino Transf (AST/SGOT) 14 U/L Alanine Aminotransferase (ALT/SGPT) 23 U/L Alkaline Phosphatase 90 U/L Troponin I < 0.015 ng/ml Total Protein 7.4 gm/dl Albumin 3.0 gm/dl Globulin 4.4 gm/dl Albumin/Globulin Ratio 0.7 Lipase 118 U/L Bedside Glucose 97 mg/dl Prothrombin Time 10.0 SECONDS Prothromb Time International Ratio 1.0 Lactic Acid Level 0.7 mmol/L Test 10/29/17 06:08 10/29/17 11:38 10/29/17 11:40 Bedside Glucose 93 mg/dl 105 mg/dl Urine Test NEG Date/Time Source Procedure Growth Status 10/29/17 09:35 Stool Shiga Toxin Test Pending Received 10/29/17 09:35 Stool Stool Culture Pending Received 10/29/17 09:35 Stool C.difficile Toxin B Gene (PCR) - Final No C. difficile toxin B gene detected Complete 10/28/17 20:54 Urine , Clean Catch Urine Culture - Preliminary PIN-POINT GROWTH PRESENT, REINCUBATING. Resulted Assessment & Plan ASSESSMENT: 1. Ileitis possible inflammatory bowel disease -- abdominal pain improving remains afebrile -- C diff negative -- r/o Crohn's -- GI consulted for Colonoscopy tomorrow appreciate GI service evaluation 2. Hyponatremia. Hypokalemia. Acute renal failure. clinical dehydration secondary to GI illness . -- given IV fluids resolved 3. Hyperlipidemia on statin rx. -- hold until GI symptoms improve 4. Hypertension. Patient's blood pressure on the lower side. -- hold Lisinopril continue Carvedilol -- monitor 5. DM2, diet controlled, well controlled as of recent outpatient hemoglobin A1c. 6. History of hypertensive cardiomyopathy, ejection fraction 65%. -- no signs of overt volume overload monitor 7. Asymptomatic pyuria 8. Abnormal CT findings -- outpatient further work up DVT proph SCDs Full code. Disposition d/c home when cleared by GI Current Inpatient Medications: Current Inpatient Medications Medications (Trade) Dose Ordered Sig/Ina Route Start Time Stop Time Status Last Admin Dose Admin Potassium Chloride/Sodium Chloride 1,000 ml @ 75 mls/hr [id number] IV 10/29/17 01:30 11/28/17 01:29 10/29/17 14:23 75 MLS/HR Prochlorperazine Edisylate 5 mg/ Syringe 5 ml @ 5 mls/min Q6H PRN IV 10/29/17 00:15 11/28/17 00:14 Acetaminophen (Tylenol Tab) 650 mg Q4H PRN PO 10/29/17 00:15 11/28/17 00:14 Glucose (Glucose 40% Gel) 15-30 GRAMS 15 GRAMS... UD PRN PO 10/29/17 00:15 11/28/17 00:14 Glucose (Glucose Chew Tab) 4-8 Tablets 4 Tabl... UD PRN PO 10/29/17 00:15 11/28/17 00:14 Dextrose (Dextrose 50% 50ML Syringe) 25-50ML OF 50% DW IV FOR... UD PRN IV 10/29/17 00:15 11/28/17 00:14 Glucagon (Glucagon Inj) 1 mg UD PRN SQ 10/29/17 00:15 11/28/17 00:14 Hydromorphone HCl (Dilaudid Inj) 0.5 mg Q3H PRN IV 10/29/17 00:15 11/12/17 00:14 Tramadol HCl (Ultram Tab) 25 mg Q6H PRN PO 10/29/17 00:15 11/28/17 00:14 Aspirin (Aspirin Chew) 81 mg DAILY PO 10/29/17 08:00 11/28/17 08:59 10/29/17 09:28 81 MG Carvedilol (Coreg Tab) 3.125 mg BID PO 10/29/17 08:00 11/28/17 08:59 10/29/17 08:51 3.125 MG Lorazepam (Ativan Inj) 0.5 mg Q4H PRN IV 10/29/17 00:15 11/28/17 00:14 Enoxaparin Sodium (Lovenox Inj) 40 mg DAILY SQ 10/30/17 08:00 11/29/17 07:59 Polyethylene (Miralax Powder Packet) 68 gm TODAY@0500,1400 PO 10/29/17 14:00 10/30/17 05:01 10/29/17 14:22 68 GM Insulin Aspart (novoLOG ASPART) SLIDING SCALE If C... ACHS SC 10/29/17 16:30 11/28/17 05:59
[2017-10-29] MEDS: PROCHLORPERAZINE INJ 5 MG in SYRINGE 4 ML IV PRN ×2 (17:24→23:52)
[2017-10-29 21:07] VITALS: BP 106/69; PULSE 67
[2017-10-29 23:00] VITALS: BP 116/72; PULSE 74; TEMP 36.8; O2SAT 98
[2017-10-30] VITALS: O2SAT 96
[2017-10-30] MEDS: NSS + 20MEQ KCL 1000ML 1,000 ML IV SCH ×2 (03:52→18:03)
[2017-10-30] MEDS: POLYETHYLENE (MIRALAX) 17 GM PACK PO SCH (05:31)
[2017-10-30 06:43] LABS: CALCIUM 7.9 mg/dl (8.5-10.1); CREATININE 0.92 mg/dl (0.60-1.20); POTASSIUM 3.6 mmol/L (3.5-5.1)
[2017-10-30] MEDS: INSULIN ASPART 100 UNITS/ML 3 ML PEN SC SCH ×4 (07:56→20:24)
[2017-10-30] MEDS ORDERED: ENOXAPARIN 40 MG/0.4 ML SYR SQ SCH (08:00)
[2017-10-30 08:24] VITALS: BP 112/72; PULSE 78; TEMP 36.7; O2SAT 97
[2017-10-30] MEDS: CARVEDILOL 3.125 MG TAB PO SCH ×2 (08:59→20:38)
[2017-10-30 09:46] VITALS: O2SAT 97
--- NOTE | 2017-10-30 11:36 | Progress Note ---
Progress Note Date of Service Oct 30, 2017. Progress Note Patient tolerated prep well overnight, still feels a bit "full" but otherwise ok. Plan to proceed with colonoscopy.
[2017-10-30] MEDS ORDERED: PROPOFOL IV EMULSION 10 MG/ML 20 ML VIAL IV ONE ×2 (11:38→12:19)
[2017-10-30] MEDS ORDERED: LIDOCAINE HCL 2% 2 ML VIAL (20MG/ML) ONE (11:38)
[2017-10-30] MEDS ORDERED: MIDAZOLAM HCL 1 MG/ML 2ML VIAL ONE (11:38)
--- NOTE | 2017-10-30 12:24 | GI REPORT ---
Procedure Date: 10/30/2017 11:40 AM Procedure: Colonoscopy Indications: Abnormal CT of the GI tract, Terminal illeal inflammation and stricutre concerning for Crohn's disease. Medicines: Monitored Anesthesia Care Complications: No immediate complications. Estimated blood loss: None. Estimated Blood Loss: Estimated blood loss: none. Procedure: Pre-Anesthesia Assessment: - Pre-Anesthesia Assessment: - Prior to the procedure, a History and Physical was performed, and patient medications, allergies and sensitivities were reviewed. The patient's tolerance of previous anesthesia was reviewed. Please see [facility]app[facility] for complete details. - The risks and benefits of the procedure and the sedation options and risks were discussed with the patient. All questions were answered and informed consent was obtained. - Patient identification and proposed procedure were verified prior to the procedure by the physician and the nurse. The procedure was verified in the pre-procedure area in the procedure room. After obtaining informed consent, the endoscope was passed carefully and meticuously under direct vision and only advanced when the lumen was clearly identified, C02 insuflation was utilized throughout the entirity of the procedure. Throughout the procedure, the patient's blood pressure, pulse, and oxygen saturations were monitored continuously. After I obtained informed consent, the scope was passed under direct vision. Throughout the procedure, the patient's blood pressure, pulse, and oxygen saturations were monitored continuously. The scope was introduced through the anus and advanced to the terminal ileum, with identification of the appendiceal orifice and IC valve. The colonoscopy was performed without difficulty. The patient tolerated the procedure well. The quality of the bowel preparation was good. Findings: A patchy area of mucosa in the distal ileum was moderately granular, inflamed and ulcerated. Biopsies were taken with a cold forceps for histology. The terminal ileum contained a benign-appearing, intrinsic moderate stenosis measuring less than one cm (in length) that was traversed. Multiple small-mouthed diverticula were found in the sigmoid colon. Internal hemorrhoids were found during retroflexion. The exam was otherwise without abnormality on direct and retroflexion views. Biopsies were taken with a cold forceps from the entire colon and into right and left colon for histology. Impression: - Granular, inflamed and ulcerated mucosa in the distal ileum. Biopsied. - Stricture in the terminal ileum. - Diverticulosis in the sigmoid colon. - Internal hemorrhoids. - The examination was otherwise normal on direct and retroflexion views. - Biopsies were taken with a cold forceps for histology from the entire colon and into right and left colon. Recommendation: - [facility]. - Start solumedrol 20 mg IV q 8Hrs for next day - Start liquids and advance to low residue - Follow pathology results - Concern for Crohn's, presentation would be appropriate for biologic therapy given TI stricturing and small bowel disease. - Will need Hep B, PPD, CXR for TNF start anticipation. Farhad Liu MD 10/30/2017 12:23:41 PM This report has been signed electronically. Note Initiated On: 10/30/2017 11:40 AM I attest to the content of the Intraoperative Record and orders documented therein, exceptions below
[2017-10-30 13:15] VITALS: BP 117/69; PULSE 69; TEMP 36.7; O2SAT 99
--- NOTE | 2017-10-30 13:16 | Anesthesiology Progress Note ---
Anesthesia Post Op Note Date & Time Oct 30, 2017 at 13:16 Vital Signs Pain Intensity: 2.0 Vital Signs Past 12 Hours Date Time Temp Pulse Resp B/P (MAP) Pulse Ox O2 Delivery O2 Flow Rate FiO2 10/30/17 12:52 79 18 110/77 (88) 99 Room Air 10/30/17 12:37 77 18 117/69 (85) 98 Room Air 10/30/17 12:22 85 18 113/69 (84) 96 Room Air 10/30/17 10:55 36.6 75 18 110/72 (85) 99 Room Air 10/30/17 09:46 97 Room Air 10/30/17 08:24 36.7 78 14 112/72 (85) 97 Room Air 10/30/17 08:10 Room Air Notes Mental Status: alert / awake / arousable, participated in evaluation Pt Amnestic to Procedure: Yes Nausea / Vomiting: adequately controlled Pain: adequately controlled Airway Patency, RR, SpO2: stable & adequate BP & HR: stable & adequate Hydration State: stable & adequate Anesthetic Complications: no major complications apparent
[2017-10-30] MEDS: METHYLPREDNISOLONE IV 20 MG in SYRINGE 0 ML IV SCH ×2 (13:49→22:20)
[2017-10-30 14:46] VITALS: BP 119/78; PULSE 71; TEMP 36.3; O2SAT 98
--- NOTE | 2017-10-30 17:26 | Progress Note ---
Medicine Progress Note Date & Time of Visit: Oct 30, 2017 at 17:24. Subjective Status post colonoscopy today Findings highly suggestive of Crohn's disease Seen sitting up in bed comfortable at bedside States abdominal pain has resolved, no nausea No BM today No chest pain shortness of breath palpitations dizziness Would like to have diet resumed No other symptoms Objective Last 8 Hrs Date Time Temp Pulse Resp B/P (MAP) Pulse Ox O2 Delivery O2 Flow Rate FiO2 10/30/17 16:00 Room Air 10/30/17 14:46 36.3 71 18 119/78 (92) 98 Room Air 10/30/17 13:15 36.7 69 16 117/69 (85) 99 Room Air 10/30/17 12:52 79 18 110/77 (88) 99 Room Air 10/30/17 12:37 77 18 117/69 (85) 98 Room Air 10/30/17 12:22 85 18 113/69 (84) 96 Room Air 10/30/17 10:55 36.6 75 18 110/72 (85) 99 Room Air 10/30/17 09:46 97 Room Air Physical Exam: General- oriented x 3, not in distress, speaks in sentences with no effort Head- atraumatic Eyes-anicteric ENT- oropharynx clear Neck- supple, no JVD Lungs- clear breath sounds bilaterally Heart- regular rhythm; no murmur, normal rate Abdomen- normal bowel sounds, soft, nontender, nondistended Extremities- no pretibial edema, no calf tenderness; peripheral pulses intact Neuro- alert, oriented x 3;no gross focal deficits Skin- warm & dry Laboratory Results: Last 24 Hours Test 10/29/17 21:06 10/30/17 05:27 10/30/17 06:01 10/30/17 07:37 Bedside Glucose 82 mg/dl 91 mg/dl 87 mg/dl Sodium Level 139 mmol/L Potassium Level 3.6 mmol/L Chloride Level 111 mmol/L Carbon Dioxide Level 21 mmol/L Anion Gap 7.0 mmol/L Blood Urea Nitrogen 8 mg/dl Creatinine 0.92 mg/dl Est Creatinine Clear Calc Drug Dose 80.0 ml/min Estimated GFR () 83.6 Estimated GFR (Non- 72.1 BUN/Creatinine Ratio 8.9 Random Glucose 85 mg/dl Calcium Level 7.9 mg/dl Test 10/30/17 13:52 10/30/17 16:21 Bedside Glucose 87 mg/dl 119 mg/dl Assessment & Plan ASSESSMENT: 1. Ileitis highly suggestive of Crohn's disease -- abdominal pain improving remains afebrile -- C diff negative --Status post colonoscopy 10/30/[address] Farhad givens Pathology pending Highly suggestive of Crohn's disease --IV Solu-Medrol every 8 hours started Likely to transition to prednisone tomorrow Clear liquid diet today, slowly advance tomorrow 2. Hyponatremia. Hypokalemia. Acute renal failure. clinical dehydration secondary to GI illness . -- given IV fluids resolved 3. Hyperlipidemia on statin rx. -- hold until GI symptoms improve 4. Hypertension. Patient's blood pressure on the lower side. -- hold Lisinopril continue Carvedilol -- monitor 5. DM2, diet controlled, well controlled as of recent outpatient hemoglobin A1c. 6. History of hypertensive cardiomyopathy, ejection fraction 65%. -- no signs of overt volume overload monitor 7. Asymptomatic pyuria 8. Abnormal CT findings -- outpatient further work up DVT proph SCDs Ambulation encouraged Full code. Disposition d/c home when cleared by GI Current Inpatient Medications: Current Inpatient Medications Medications (Trade) Dose Ordered Sig/Ina Route Start Time Stop Time Status Last Admin Dose Admin Potassium Chloride/Sodium Chloride 1,000 ml @ 75 mls/hr [id number] IV 10/29/17 01:30 11/28/17 01:29 10/30/17 03:52 75 MLS/HR Prochlorperazine Edisylate 5 mg/ Syringe 5 ml @ 5 mls/min Q6H PRN IV 10/29/17 00:15 11/28/17 00:14 10/29/17 23:52 5 MLS/MIN Acetaminophen (Tylenol Tab) 650 mg Q4H PRN PO 10/29/17 00:15 11/28/17 00:14 Glucose (Glucose 40% Gel) 15-30 GRAMS 15 GRAMS... UD PRN PO 10/29/17 00:15 11/28/17 00:14 Glucose (Glucose Chew Tab) 4-8 Tablets 4 Tabl... UD PRN PO 10/29/17 00:15 11/28/17 00:14 Dextrose (Dextrose 50% 50ML Syringe) 25-50ML OF 50% DW IV FOR... UD PRN IV 10/29/17 00:15 11/28/17 00:14 Glucagon (Glucagon Inj) 1 mg UD PRN SQ 10/29/17 00:15 11/28/17 00:14 Hydromorphone HCl (Dilaudid Inj) 0.5 mg Q3H PRN IV 10/29/17 00:15 11/12/17 00:14 Tramadol HCl (Ultram Tab) 25 mg Q6H PRN PO 10/29/17 00:15 11/28/17 00:14 10/29/17 23:52 25 MG Carvedilol (Coreg Tab) 3.125 mg BID PO 10/29/17 08:00 11/28/17 08:59 10/30/17 08:59 3.125 MG Lorazepam (Ativan Inj) 0.5 mg Q4H PRN IV 10/29/17 00:15 11/28/17 00:14 Insulin Aspart (novoLOG ASPART) SLIDING SCALE If C... ACHS SC 10/29/17 16:30 11/28/17 05:59 Methylprednisolone Sodium Succinate 20 mg/Syringe 0.32 ml @ 1.5 mls/min Q8 IV 10/30/17 14:00 11/29/17 13:59 10/30/17 13:49 1.5 MLS/MIN
[2017-10-30] MEDS ORDERED: NURSING VERBAL MED ORDER ONE (22:30)
[2017-10-30 22:55] VITALS: BP 119/70; PULSE 69; TEMP 36.6; O2SAT 97
[2017-10-31] MEDS: METHYLPREDNISOLONE IV 20 MG in SYRINGE 0 ML IV SCH ×2 (06:01→13:57)
[2017-10-31] MEDS: INSULIN ASPART 100 UNITS/ML 3 ML PEN SC SCH ×2 (06:30→11:00)
[2017-10-31 06:46] LABS: CALCIUM 8.4 mg/dl (8.5-10.1); CREATININE 0.87 mg/dl (0.60-1.20); POTASSIUM 3.8 mmol/L (3.5-5.1)
[2017-10-31 07:16] VITALS: BP 112/67; PULSE 55; TEMP 36.3; O2SAT 97
[2017-10-31] MEDS: CARVEDILOL 3.125 MG TAB PO SCH (07:41)
[2017-10-31 08:00] VITALS: O2SAT 97
[2017-10-31 15:11] VITALS: BP 121/75; PULSE 58; TEMP 36.6; O2SAT 97
--- NOTE | 2017-10-31 16:18 | Progress Note ---
Medicine Progress Note Date & Time of Visit: Oct 31, 2017 at 16:13. Subjective seen resting in bed, comfortable states she feels fine overall denies abdominal pain, nausea no dizziness, chest pain, dyspnea, palpitations, dizziness no other symptoms ambulating with no problems states she is ready and would like to be discharged today Objective Last 8 Hrs Date Time Temp Pulse Resp B/P (MAP) Pulse Ox O2 Delivery O2 Flow Rate FiO2 10/31/17 15:11 36.6 58 20 121/75 (90) 97 Room Air Physical Exam: General- oriented x 3, not in distress, speaks in sentences with no effort Neck- no JVD Lungs- clear breath sounds bilaterally , no rales/wheezes Heart- regular rhythm; no murmur, normal rate Abdomen- normal bowel sounds, soft, nontender, nondistended Extremities- no pretibial edema, no calf tenderness Neuro- alert, oriented x 3;no gross focal deficits Skin- warm & dry Laboratory Results: Last 24 Hours Test 10/30/17 16:21 10/30/17 20:03 10/31/17 05:20 10/31/17 07:32 Bedside Glucose 119 mg/dl 139 mg/dl 117 mg/dl Sodium Level 137 mmol/L Potassium Level 3.8 mmol/L Chloride Level 108 mmol/L Carbon Dioxide Level 20 mmol/L Anion Gap 9.0 mmol/L Blood Urea Nitrogen 6 mg/dl Creatinine 0.87 mg/dl Est Creatinine Clear Calc Drug Dose 84.6 ml/min Estimated GFR () 89.4 Estimated GFR (Non- 77.1 BUN/Creatinine Ratio 6.5 Random Glucose 130 mg/dl Calcium Level 8.4 mg/dl Test 10/31/17 11:13 Bedside Glucose 141 mg/dl Assessment & Plan 1. Ileitis highly suggestive of Crohn's disease -- abdominal pain resolved remained afebrile -- C diff negative -- evaluated by GI Dr. Liu and SILVIA Mills --Status post colonoscopy 10/30/[address] Farhad liu Pathology:The biopsy from part A shows ileal-type mucosa with acute and chronic inflammation. The acute inflammation is primarily localized to superficial epithelium. Some areas of the lamina propria show fibromyxoid changes but basal plasmacytosis is absent. No granulomas are identified. The pattern of inflammation is not specific but is not suggestive of Crohns disease. Correlation with clinical findings is suggested. --IV Solu-Medrol every 8 hours started transition to Prednisone 40mg po daily -- ff up with GI in 1-2 weeks 2. Hyponatremia. Hypokalemia. Acute renal failure -- clinical dehydration secondary to GI illness . -- given IV fluids resolved 3. Hyperlipidemia on statin rx. -- continue Statin 4. Hypertension. -- Patient's blood pressure on the lower side. -- hold Lisinopril continue Carvedilol -- monitor as outpatient 5. DM2, diet controlled, well controlled as of recent outpatient hemoglobin A1c. 6. History of hypertensive cardiomyopathy, ejection fraction 65%. -- no signs of overt volume overload 7. Asymptomatic pyuria 8. Abnormal CT findings --A few hypodense right hepatic lobe lesions which are indeterminate. A follow-up nonemergent MRI of the liver once acute symptoms resolve is recommended. 3.5 cm right adnexal lesion which likely reflects an ovarian cyst. A follow-up nonemergent pelvic ultrasound is recommended. Suspected sacroiliitis. -- outpatient further work up and monitoring Disposition d/c home ff up with PCP in 3-5 days ff up with GI in 1-2 weeks ff up with Cardiology as scheduled Current Inpatient Medications: Current Inpatient Medications Medications (Trade) Dose Ordered Sig/Ina Route Start Time Stop Time Status Last Admin Dose Admin Prochlorperazine Edisylate 5 mg/ Syringe 5 ml @ 5 mls/min Q6H PRN IV 10/29/17 00:15 11/28/17 00:14 10/29/17 23:52 5 MLS/MIN Acetaminophen (Tylenol Tab) 650 mg Q4H PRN PO 10/29/17 00:15 11/28/17 00:14 Glucose (Glucose 40% Gel) 15-30 GRAMS 15 GRAMS... UD PRN PO 10/29/17 00:15 11/28/17 00:14 Glucose (Glucose Chew Tab) 4-8 Tablets 4 Tabl... UD PRN PO 10/29/17 00:15 11/28/17 00:14 Dextrose (Dextrose 50% 50ML Syringe) 25-50ML OF 50% DW IV FOR... UD PRN IV 10/29/17 00:15 11/28/17 00:14 Glucagon (Glucagon Inj) 1 mg UD PRN SQ 10/29/17 00:15 11/28/17 00:14 Hydromorphone HCl (Dilaudid Inj) 0.5 mg Q3H PRN IV 10/29/17 00:15 11/12/17 00:14 Tramadol HCl (Ultram Tab) 25 mg Q6H PRN PO 10/29/17 00:15 11/28/17 00:14 10/29/17 23:52 25 MG Carvedilol (Coreg Tab) 3.125 mg BID PO 10/29/17 08:00 11/28/17 08:59 10/30/17 20:38 3.125 MG Lorazepam (Ativan Inj) 0.5 mg Q4H PRN IV 10/29/17 00:15 11/28/17 00:14 Insulin Aspart (novoLOG ASPART) SLIDING SCALE If C... ACHS SC 10/29/17 16:30 11/28/17 05:59 Methylprednisolone Sodium Succinate 20 mg/Syringe 0.32 ml @ 1.5 mls/min Q8 IV 10/30/17 14:00 11/29/17 13:59 10/31/17 13:57 1.5 MLS/MIN
[2017-10-31] MEDS ORDERED: PRD20 PO (16:22)
--- NOTE | 2017-10-31 16:22 | Gastroenterology Progress Note ---
Progress Note Date of Service: Oct 31, 2017 Subjective Pt evaluation today including: conversation w/ patient, physical exam, chart review, lab review, review of studies, review of inpatient medication list Pt is a 52 yr old female admitted with abdominal pain, CT with terminal ileitis. Colonoscopy on 10/30 with a TI stricture and endoscopic evidence of Crohn's at the TI. Today pt feels well and is tolerating a regular consistency, though low fiber diet. States that she feels much better than at the time of admission. Stool studies (-) for culture and C-diff. Today, path reported as:The pattern of inflammation is not specific but is not suggestive of Crohns disease. Correlation with clinical findings is suggested. Review of Systems Constitutional: No fever ENT: No hearing loss Respiratory: No cough Cardiac: No chest pain Abdomen: + pain (much improved), No nausea, No vomiting, No diarrhea, No constipation Musculoskeletal: + joint pain (chronic lower back pain but nothing severe.) Female : No dysuria Neuro: No memory loss Psych: No depression symptoms Heme: No abnormal bleeding/bruising Endo: No fatigue Skin: No rash Medications Current Inpatient Medications Medications (Trade) Dose Ordered Sig/Ina Route Start Time Stop Time Status Last Admin Dose Admin Prochlorperazine Edisylate 5 mg/ Syringe 5 ml @ 5 mls/min Q6H PRN IV 10/29/17 00:15 11/28/17 00:14 10/29/17 23:52 5 MLS/MIN Acetaminophen (Tylenol Tab) 650 mg Q4H PRN PO 10/29/17 00:15 11/28/17 00:14 Glucose (Glucose 40% Gel) 15-30 GRAMS 15 GRAMS... UD PRN PO 10/29/17 00:15 11/28/17 00:14 Glucose (Glucose Chew Tab) 4-8 Tablets 4 Tabl... UD PRN PO 10/29/17 00:15 11/28/17 00:14 Dextrose (Dextrose 50% 50ML Syringe) 25-50ML OF 50% DW IV FOR... UD PRN IV 10/29/17 00:15 11/28/17 00:14 Glucagon (Glucagon Inj) 1 mg UD PRN SQ 10/29/17 00:15 11/28/17 00:14 Hydromorphone HCl (Dilaudid Inj) 0.5 mg Q3H PRN IV 10/29/17 00:15 11/12/17 00:14 Tramadol HCl (Ultram Tab) 25 mg Q6H PRN PO 10/29/17 00:15 11/28/17 00:14 10/29/17 23:52 25 MG Carvedilol (Coreg Tab) 3.125 mg BID PO 10/29/17 08:00 11/28/17 08:59 10/30/17 20:38 3.125 MG Lorazepam (Ativan Inj) 0.5 mg Q4H PRN IV 10/29/17 00:15 11/28/17 00:14 Insulin Aspart (novoLOG ASPART) SLIDING SCALE If C... ACHS SC 10/29/17 16:30 11/28/17 05:59 Methylprednisolone Sodium Succinate 20 mg/Syringe 0.32 ml @ 1.5 mls/min Q8 IV 10/30/17 14:00 11/29/17 13:59 10/31/17 13:57 1.5 MLS/MIN Objective Vital Signs Date Time Temp Pulse Resp B/P (MAP) Pulse Ox O2 Delivery O2 Flow Rate FiO2 10/31/17 15:11 36.6 58 20 121/75 (90) 97 Room Air 10/31/17 08:00 97 Room Air 10/31/17 07:16 36.3 55 20 112/67 (82) 97 Room Air 10/31/17 00:45 Room Air 10/30/17 22:55 36.6 69 18 119/70 (86) 97 Room Air 10/30/17 19:20 Room Air Physical Exam General Appearance: no apparent distress ENT: pharynx normal Neck: supple, thyroid normal, no JVD Respiratory/Chest: lungs clear Cardiovascular: regular rate, rhythm, no JVD, no murmur Abdomen: non tender, soft Extremities: non-tender Neurologic/Psych: alert, normal mood/affect, oriented x 3 Skin: no jaundice Laboratory Results Last 24 Hours Test 10/30/17 16:21 10/30/17 20:03 10/31/17 05:20 10/31/17 07:32 Bedside Glucose 119 mg/dl 139 mg/dl 117 mg/dl Sodium Level 137 mmol/L Potassium Level 3.8 mmol/L Chloride Level 108 mmol/L Carbon Dioxide Level 20 mmol/L Anion Gap 9.0 mmol/L Blood Urea Nitrogen 6 mg/dl Creatinine 0.87 mg/dl Est Creatinine Clear Calc Drug Dose 84.6 ml/min Estimated GFR () 89.4 Estimated GFR (Non- 77.1 BUN/Creatinine Ratio 6.5 Random Glucose 130 mg/dl Calcium Level 8.4 mg/dl Test 10/31/17 11:13 Bedside Glucose 141 mg/dl Assessment and Plan 1. OP lab orders placed: quantiferron gold (PPD test). Pt will get this drawn. 2. Our office will contact the pt with an OP GI f/u appt for 1-2 weeks. 3. OK to DC on prednisone 40mg daily. 4. Low fiber diet. 5. Long discussion regarding options for medication for prevention of Crohn's. Pt leaning toward a TNF. Attending Addm: I have seen, examined and agree with the plan as outlined above by SILVIA Rodgers. -Improved and tolerating normal diet. -Pathology with nonspecific ileitis, sacrolitis, most likely Crohn's -Trial of steroids, follow up in the office for further care
--- NOTE | 2017-10-31 16:27 | Discharge Instructions ---
Discharge Instructions Date of Service Oct 31, 2017. Admission Reason for Admission: Ileitis Discharge Discharge Diagnosis / Problem: CROHN'S DISEASE Discharge Goals Goal(s): Diagnostic testing, Therapeutic intervention Activity Recommendations Activity Limitations: as noted below (NO HEAVY EXERTION UNTIL RE-EVALUATED BY PRIMARY CARE PHYSICIAN) Lifting Limitations: until after follow-up appointment Exercise/Sports Limitations: until after follow-up appointment Driving or Machine Use: NO DRIVING UNTIL RE-EVALUATED BY PRIMARY CARE PHYSICIAN . Instructions / Follow-Up Instructions / Follow-Up PLEASE REVIEW YOUR NEW MEDICATION LIST AND FOLLOW INSTRUCTIONS CAREFULLY. CALL PRIMARY CARE PHYSICIAN/PERCUSSION INSTRUMENT TUNER OR RETURN TO ER IMMEDIATELY IF WITH RECURRENCE OF SYMPTOMS, INCREASING ABDOMINAL PAIN, NAUSEA, BLOOD IN THE STOOL, DIARRHEA, FEVER/ CHILLS. FOLLOW UP WITH DR. LAZARO ON Saturday11/05/17 AT 12:45 PM. FOLLOW UP WITH PERCUSSION INSTRUMENT TUNER IN 1-2 WEEKS. FOLLOW UP WITH COB SAWYER SCHEDULED. Current Hospital Diet Patient's current hospital diet: Low Fiber Diet, Diabetes Type 2 Diet Discharge Diet Recommended Diet: Diabetes Type 2 Diet, Low Fiber Diet Procedures Procedures Performed: COLONOSCOPY Pending Studies Studies pending at discharge: no Medical Emergencies . Who to Call and When: Medical Emergencies: If at any time you feel your situation is an emergency, please call 911 immediately. . Non-Emergent Contact Non-Emergency issues call your: Primary Care Provider, Funnel Setter, Wrist Liner Call Non-Emergent contact if: you have a fever, your pain is not controlled, your pain is worsening, you have any medication questions . . "Provider Documentation" section prepared by Ovidio Turk. .
--- NOTE | 2017-10-31 16:34 | Discharge Summary ---
Discharge Summary Date of Service Oct 31, 2017. Discharge Summary Admission Date: Oct 28, 2017 at 23:43 Discharge Date: Oct 31, 2017 Discharge Disposition: Home Principal Diagnosis: Ileitis highly suggestive of Crohn's disease Secondary Diagnoses/Problems: Please refer to hospital course below. Procedures: s/p COLONOSCOPY Findings: A patchy area of mucosa in the distal ileum was moderately granular, inflamed and ulcerated. Biopsies were taken with a cold forceps for histology. The terminal ileum contained a benign-appearing, intrinsic moderate stenosis measuring less than one cm (in length) that was traversed. Multiple small-mouthed diverticula were found in the sigmoid colon. Internal hemorrhoids were found during retroflexion. The exam was otherwise without abnormality on direct and retroflexion views. Biopsies were taken with a cold forceps from the entire colon and into right and left colon for histology. Impression: - Granular, inflamed and ulcerated mucosa in the distal ileum. Biopsied. - Stricture in the terminal ileum. - Diverticulosis in the sigmoid colon. - Internal hemorrhoids. - The examination was otherwise normal on direct and retroflexion views. - Biopsies were taken with a cold forceps for histology from the entire colon and into right and left colon. Recommendation: - [facility]. - Start solumedrol 20 mg IV q 8Hrs for next day - Start liquids and advance to low residue - Follow pathology results - Concern for Crohn's, presentation would be appropriate for biologic therapy given TI stricturing and small bowel disease. - Will need Hep B, PPD, CXR for TNF start anticipation. Farhad Liu MD 10/30/2017 12:23:[address] OF THE ABDOMEN AND PELVIS WITH CONTRAST CLINICAL HISTORY: Abdominal pain. COMPARISON STUDY: Abdominal series December 20, 2008. TECHNIQUE: Following IV administration of 94 mL of Optiray-320, axial images of the abdomen and pelvis were obtained from the lung bases to the proximal femurs. Images were reviewed in the axial, sagittal, and coronal planes. IV contrast was administered without complication. A dose lowering technique was utilized adhering to the principles of ALARA. CT DOSE: 1055.86 mGy.cm FINDINGS: A trace right pleural effusion is noted. There is no pneumatosis, free air or portal venous gas. Note is made of a 2 cm hypodense segment 7 hepatic lesion is well as a subtle 2.3 cm several hypodense segment 7 hepatic lesion shown image 18 of 97. The spleen, adrenal glands and pancreas are unremarkable. A few suspected renal cysts are noted. Several subcentimeter renal lesions are too small to characterize. There is a 2 mm right renal calculus. No ureteral calculi are present. There is no hydronephrosis. The appendix is normal. Small large bowel are fluid-filled. There is multifocal long segment ileal wall thickening with associated hyperemia and mesenteric infiltration. There is trace abdominal and pelvic ascites. A transition point is noted within the small bowel shown on axial image 330 of 481. No free air or abscess is present. No abscess or fistula is identified. There is suspected sacroiliitis. Note is made of a 3.5 cm water attenuation right adnexal lesion. IMPRESSION: 1. Multifocal long segment wall thickening and associated hyperemia of the ileum with mild small bowel dilatation suggestive of a partial small bowel obstruction secondary to ileitis which may be inflammatory or infectious. The appearance raises the possibility of Crohn's disease however an infectious process could appear similar. No free air or abscess. Mild mesenteric infiltration and trace ascites. Normal appendix. 2. A few hypodense right hepatic lobe lesions which are indeterminate. A follow-up nonemergent MRI of the liver once acute symptoms resolve is recommended. 3. Trace right pleural effusion. 4. 3.5 cm right adnexal lesion which likely reflects an ovarian cyst. A follow-up nonemergent pelvic ultrasound is recommended. 5. Suspected sacroiliitis. Electronically signed by: Santi Martin M.D. 10/28/2017 10:24 PM Consultations: RHONDA LIU/SILVIA MILLS Pending Studies/Follow-Up: PLEASE REFER TO HOSPITAL COURSE BELOW. Medication Reconciliation New Medications: Prednisone (Prednisone) 20 Mg Tab 40 MG PO DAILY for 30 Days, #60 TABS 1 Refill Continued Medications: Aspirin (Aspirin Tab-Chewable *) 81 Mg Chew 81 MG PO DAILY, 0 Refills Carvedilol (Coreg *) 25 Mg Tab 37.5 MG PO BID, 0 Refills Magnesium Oxide (Mag-Ox) Unknown Strength Tab Unknown Dose PO DAILY, TAB Potassium Chloride (Micro-K Ext Rel) 20 Meq Cap 20 MEQ PO QAM, 0 Refills Discontinued Medications: Lisinopril (Zestril) 5 Mg Tab 5 MG PO DAILY, TAB Admission Information HPI (per Admitting provider): CHIEF COMPLAINT: Abdominal pain. HISTORY OF PRESENT ILLNESS: History obtained from patient and records. Medical history significant for hypertension, chronic diastolic heart failure 2 to hypertensive cardiomyopathy (EF 55-59% 2013), , hyperlipidemia. DM2, diet controlled Two days history of achy epigastric pain, nausea, bilious emesis, loose stools (usual for patient), nonbloody. No fever, no chills, no chest pain, no shortness of breath. Intentional weight loss as per patient. Brought to the Emergency Room. Physical Exam (per Admitting): VITAL SIGNS: Blood pressure was noted to be 100/70, pulse rate 95, RR 20 T 37 O2 sats 96 on room air. GENERAL: Noted to be anxious, obese, no respiratory distress. SKIN: Normal color, warm. HEENT: [place] palpebral conjunctivae. No ptosis. Dry mucosa. NECK: Short, supple. Nontender CHEST: Decreased breath sounds. No tenderness. HEART: Regular rate and rhythm, no murmur. ABDOMEN: Epigastric tenderness, some distention. EXTREMITIES: No edema. No gross deformities. No tenderness. NEUROLOGIC: Coherent. No gross focality. Hospital Course Ileitis highly suggestive of Crohn's disease -- C diff negative -- evaluated by GI Dr. Liu and SILVIA Mills --Status post colonoscopy 10/30/[address] Farhad liu Pathology:The biopsy from part A shows ileal-type mucosa with acute and chronic inflammation. The acute inflammation is primarily localized to superficial epithelium. Some areas of the lamina propria show fibromyxoid changes but basal plasmacytosis is absent. No granulomas are identified. The pattern of inflammation is not specific but is not suggestive of Crohns disease. Correlation with clinical findings is suggested. --IV Solu-Medrol every 8 hours started -- abdominal pain resolved remained afebrile -- transition to Prednisone 40mg po daily -- ff up with GI in 1-2 weeks 2. Hyponatremia. Hypokalemia. Acute renal failure -- clinical dehydration secondary to GI illness . -- given IV fluids resolved 3. Hyperlipidemia on statin rx. -- continue Statin 4. Hypertension. -- Patient's blood pressure on the lower side, systolic 112-120 -- hold Lisinopril continue Carvedilol -- monitor as outpatient 5. DM2, diet controlled, well controlled as of recent outpatient hemoglobin A1c. 6. History of hypertensive cardiomyopathy, ejection fraction 65%. -- no signs of overt volume overload 7. Asymptomatic pyuria 8. Abnormal CT findings -- please refer to full report, Procedure Section above --A few hypodense right hepatic lobe lesions which are indeterminate. A follow-up nonemergent MRI of the liver once acute symptoms resolve is recommended. 3.5 cm right adnexal lesion which likely reflects an ovarian cyst. A follow-up nonemergent pelvic ultrasound is recommended. Suspected sacroiliitis. -- outpatient further work up and monitoring Disposition d/c home ff up with PCP in 3-5 days ff up with GI in 1-2 weeks ff up with Cardiology as scheduled Total time spent on discharge = 30 minutes This includes examination of the patient, discharge planning, medication reconciliation, and communication with other providers. Discharge Instructions Discharge Instructions Date of Service Oct 31, 2017. Admission Reason for Admission: Ileitis Discharge Discharge Diagnosis / Problem: CROHN'S DISEASE Discharge Goals Goal(s): Diagnostic testing, Therapeutic intervention Activity Recommendations Activity Limitations: as noted below (NO HEAVY EXERTION UNTIL RE-EVALUATED BY PRIMARY CARE PHYSICIAN) Lifting Limitations: until after follow-up appointment Exercise/Sports Limitations: until after follow-up appointment Driving or Machine Use: NO DRIVING UNTIL RE-EVALUATED BY PRIMARY CARE PHYSICIAN . Instructions / Follow-Up Instructions / Follow-Up PLEASE REVIEW YOUR NEW MEDICATION LIST AND FOLLOW INSTRUCTIONS CAREFULLY. CALL PRIMARY CARE PHYSICIAN/CLAIMS ADJUSTER CROP OR RETURN TO ER IMMEDIATELY IF WITH RECURRENCE OF SYMPTOMS, INCREASING ABDOMINAL PAIN, NAUSEA, BLOOD IN THE STOOL, DIARRHEA, FEVER/ CHILLS. FOLLOW UP WITH DR. LAZARO ON Saturday11/05/17 AT 12:45 PM. FOLLOW UP WITH CLAIMS ADJUSTER CROP IN 1-2 WEEKS. FOLLOW UP WITH DRUG WORKER SCHEDULED. Current Hospital Diet Patient's current hospital diet: Low Fiber Diet, Diabetes Type 2 Diet Discharge Diet Recommended Diet: Diabetes Type 2 Diet, Low Fiber Diet Procedures Procedures Performed: COLONOSCOPY Pending Studies Studies pending at discharge: no Medical Emergencies . Who to Call and When: Medical Emergencies: If at any time you feel your situation is an emergency, please call 911 immediately. . Non-Emergent Contact Non-Emergency issues call your: Primary Care Provider, Assistant Portfolio Manager, Posting Specialist Call Non-Emergent contact if: you have a fever, your pain is not controlled, your pain is worsening, you have any medication questions . . "Provider Documentation" section prepared by Ovidio Turk. .
[2017-10-31 16:44] VITALS: BP 121/75; PULSE 58; TEMP 36.6; O2SAT 97
== END 2017-10-31 17:05 | disposition home or self-care (01) | DRG 386 ==
LOC: C.EDB 19:19 → C.4E 23:43 → ENRESERV 10-29 00:01
PROVIDERS: ADMIT Internal Medicine; ATTEND Internal Medicine
PROC: 0DBB8ZX Excision of Ileum, Via Natural or Artificial Opening Endoscopic, Diagnostic (ICD-10-PCS; principal; 2017-10-30 10:51)
PROC: 0DBF8ZX Excision of Right Large Intestine, Via Natural or Artificial Opening Endoscopic, Diagnostic (ICD-10-PCS; principal; 2017-10-30 10:51)
PROC: 0DBG8ZX Excision of Left Large Intestine, Via Natural or Artificial Opening Endoscopic, Diagnostic (ICD-10-PCS; principal; 2017-10-30 10:51)
DX: K50.00 Crohn's disease of small intestine without complications (principal); I50.32 Chronic diastolic (congestive) heart failure; I11.0 Hypertensive heart disease with heart failure; N17.9 Acute kidney failure, unspecified; Z79.82 Long term (current) use of aspirin; E87.1 Hypo-osmolality and hyponatremia; E87.6 Hypokalemia; E78.5 Hyperlipidemia, unspecified; K57.30 Diverticulosis of large intestine without perforation or abscess without bleeding; K64.8 Other hemorrhoids